=== PATIENT | female | born 1990 | race American Indian/Alaskan Native ===

== ENCOUNTER 2018-01-21 09:56 | Outpatient (CLI) | payer OTHER ==
--- NOTE | 2018-01-21 17:30 | Ultrasound Report ---
FINAL REPORT PROCEDURE: US SOFT TISSUE HEAD AND NECK TECHNIQUE: Focused real-time sonography in multiple planes of the soft tissues of the left neck was performed with image documentation. CPT 34298 HISTORY: Swelling, palpable area left neck. COMPARISON: No prior studies are available for comparison. FINDINGS: No focal cystic or solid mass is evident. IMPRESSION: No sonographic evidence of abnormality. Consider CT scan for further characterization if there is continued clinical concern for swelling/mass in the neck.
== END 2018-01-21 09:57 | disposition home or self-care (01) ==
LOC: US 09:56
PROVIDERS: ATTEND Physician Assistant
DX: R22.1 Localized swelling, mass and lump, neck (principal)
CPT/HCPCS: 76536

== ENCOUNTER 2018-01-21 10:23 | Emergency (ER) | payer OTHER ==
--- NOTE | 2018-01-21 12:54 | Emergency Department Report ---
Blank Doc - Documentation Documentation: Medical Screening exam. Pt was sent to ED after optometrists visit, with picture of pt's Left Optiic Disc, with interpretation " moderate chronic papilledema" Pt was sent to "r/o tumor" and for concern of pseudotumor cerebri. Pt states she does not have headache. Pt states she has " migraines " form time to time. Pt reports she gets visual " aura" in eye, before " migraine" Pt states the " aura" di not go away, so she went to septic cleaner on 01/17/18. Pt sent to main ED for imaging and detailed work up, as I am screening patients in fast track
[2018-01-21] MEDS ORDERED: FUL-GLO OP ONE (15:04)
[2018-01-21] MEDS ORDERED: TETRACAINE 0.5% OD ONE (15:06)
--- NOTE | 2018-01-21 15:48 | Emergency Department Report ---
ED General Adult HPI - General Chief complaint: Eye Problems Stated complaint: EYE SWELLING. Time Seen by Provider: 01/21/18 12:41 Source: patient Mode of arrival: Ambulatory Limitations: No Limitations - History of Present Illness Initial comments: patient reports history of migraines. Reports that migraines run in her family. Denies headache in the ER or eye pain. Reports that she was told to come to the ER because her exam at the [facility] was concerning for increasing pressure at the back of the eye. Denies ophthalmology exam. -: month(s) Location: head, eyes (right eye aura before a migraine) Severity scale (0 -10): 0 Consistency: intermittent Improves with: medication (OTC alleve) Worsens with: none Associated Symptoms: denies: confusion, chest pain, cough, diaphoresis, fever/ chills, headaches, loss of appetite, malaise, nausea/vomiting, rash, seizure, shortness of breath, syncope, weakness - Related Data Allergies Allergy/AdvReac Type Severity Reaction Status Date / Time No Known Allergies Allergy Unverified 01/21/18 09:56 ED Review of Systems ROS: Stated complaint: EYE SWELLING. Other details as noted in HPI Other: GENERAL: No weight change, fatigue, weakness, fever, chills, or night sweats SKIN: No changes in skin or hair, no itching, no rashes, no jaundice HEAD: No trauma, headache, or visual changes EYES: No blurriness, tearing, itching, acute visual loss, conjunctival discoloration, or scleral icterus EARS: No hearing loss, tinnitus, vertigo, or earache NOSE: No rhinorrhea, stuffiness, sneezing, itching, or epistaxis MOUTH: No bleeding gums, hoarseness, sore throat, or swelling CARDIAC: No new murmur, chest pain, palpitations, dyspnea on exertion, orthopnea , PND, or edema RESPIRATORY: No shortness of breath, wheeze, cough, sputum production, hemoptysis, pneumonia, asthma, bronchitis, or emphysema GI: No change in appetite, nausea, vomiting, dysphagia, change in bowel frequency, diarrhea, constipation, bleeding, hematemesis, melena, hematochezia, or abdominal pain URINARY: No frequency, urgency, polyuria, dysuria, hematuria, or incontinence MUSCULOSKELETAL: No muscle weakness, joint stiffness, decrease in range of motion, redness, swelling NEUROLOGIC: Headaches periodically. No loss of sensation, numbness, tingling, tremors, weakness, paralysis, seizures HEMATOLOGIC: No anemia, easy bruising, bleeding, petechiae, or purpura ENDOCRINE: No hot or cold intolerance, sweating, polyuria, polydipsia or, polyphagia no thyroid problems PSYCHIATRIC: No change in mood, no anxiety, no depression ED Past Medical Hx - Past Medical History Additional medical history: HYPERLIPIDEMIA, MIGRAINES - Surgical History Past Surgical History?: No - Social History Smoking Status: Never Smoker Substance Use Type: None ED Physical Exam - General Limitations: No Limitations - Other Other exam information: GENERAL: Patient in no acute distress HEAD: Normocephalic, atraumatic EYES: PERRLA, EOM intact, no scleral icterus, visual honeycutt and acuity wnl NOSE: No tenderness, discharge, sinus tenderness MOUTH: No erythema, bleeding, exudate HEART: Regular rate and rhythm, no murmur, S1-S2 are auscultated, pulses are symmetric LUNGS: bilateral breath sounds. No wheezing, rales, rhonchi ABDOMEN: Normal bowel sounds, no tenderness, no rebound, no guarding, no masses , no CVA tenderness MUSCULOSKELETAL: Normal joint range of motion, no redness, no swelling, no tenderness NEUROLOGIC: GCS 15, Alert and Oriented x3, Cranial nerves intact, normal sensation, normal strength, normal gait, no cerebellar deficit PSYCHIATRIC: No homicidal or suicidal ideation, no anxiety, no depression, no hallucinations SKIN: Skin is warm and dry, no wounds, no rashes ED Course Vital Signs 01/21/18 01/21/18 01/21/18 10:41 13:18 13:28 Temperature 98.6 F 98.3 F Pulse Rate 79 72 Respiratory 18 18 Rate Blood Pressure 133/90 Blood Pressure 133/92 [Left] O2 Sat by Pulse 100 31 L 94 Oximetry ED Medical Decision Making - Medical Decision Making Discussed with patient that CT Brain in the ER mainly evaluates for bleeding. Recommend outpatient MRI brain for evaluation. Patient with no symptoms in the ER and normal exam. Patient agrees to outpatient follow up and will return with worsening of symptoms. Critical care attestation.: If time is entered above; I have spent that time in minutes in the direct care of this critically ill patient, excluding procedure time. ED Disposition Clinical Impression: Idiopathic intracranial hypertension Disposition: DC- TO HOME OR SELFCARE Is pt being admited?: No Condition: Stable Instructions: Idiopathic Intracranial Hypertension (ED) Referrals: AQUILES SPENCE PAC [Primary Care Provider] - 2-3 Days POONAM SALGADO MD [Staff Physician] - 2-3 Days MATIAS MEAD MD [Staff Physician] - 2-3 Days Time of Disposition: 15:49
[2018-01-21 18:06] VITALS: BP 129/92
== END 2018-01-21 16:00 | disposition home or self-care (01) ==
LOC: ED 10:23
DX: G93.2 Benign intracranial hypertension (principal); E78.5 Hyperlipidemia, unspecified
CPT/HCPCS: 99282

== ENCOUNTER 2021-07-02 09:47 | Outpatient (CLI) | payer OTHER ==
--- NOTE | 2021-07-02 10:51 | XRay Report ---
Right foot radiograph, 2 views. Right ankle radiograph, 2 views HISTORY: Right foot and ankle pain COMPARISON: None FINDINGS: Right foot: Mild first MTP osteoarthritis. No acute fracture or malalignment. No focal soft tissue ab normality. Right ankle: Mild osteoarthritis of the dorsal talonavicular joint. No acute fracture or malalignment . No focal soft tissue abnormality. 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 No acute process. Signer Name: Morro Soto MD Signed: 07/02/2021 10:47 AM Workstation Name: [id number][id number]
== END 2021-07-02 09:48 | disposition home or self-care (01) ==
LOC: XRAY 09:47
PROVIDERS: ATTEND Internal Medicine
DX: M19.071 Primary osteoarthritis, right ankle and foot (principal)